=== PATIENT | male | born 2000 | race Caucasian/White ===

== ENCOUNTER 2021-10-12 11:01 | Inpatient (IN) | payer OTHER ==
[~2021-10-12] VITALS: Ht 172.7 cm; Wt 54.4 kg
[2021-10-12 11:13] VITALS: BP 131/93
[2021-10-12] MEDS ORDERED: BRINTELLIX10 MG PO (11:15)
[2021-10-12] MEDS ORDERED: BUSPIRONE HCL10 MG PO (11:15)
[2021-10-12] MEDS ORDERED: ADDERALL 10 MG10 MG PO (11:15)
[2021-10-12 11:40] LABS: HEMATOCRIT 43.4 % (42.0-52.0); HEMOGLOBIN 15.3 gm/dL (14.0-18.0); MCH 30.4 pg (26.0-34.0); MCHC 35.1 g/dL (28.0-37.0); MCV 86.6 fL (80.0-100.0); MPV 7.1 fl. (7.2-11.1); NUCLEATED RBCS 0 /100WBC; PLATELET COUNT* 350 thou/uL (150-400); RBC 5.02 mil/uL (4.50-6.00); RDW-CV 13.3 % (10.5-14.5)
[2021-10-12 12:08] LABS: CALCIUM 9.9 mg/dL (8.5-10.1); CREATININE 0.8 mg/dL (0.6-1.3); POTASSIUM 3.6 mmol/L (3.5-5.1)
[2021-10-12 12:11] LABS: ABSOLUTE LYMPHOCYTES 0.9 thou/uL (0.8-5.3); ABSOLUTE MONOCYTES 0.8 thou/uL (0.0-1.2); ABSOLUTE NEUTROPHILS 8.3 thou/uL (1.6-8.1); PLATELET ESTIMATE ADEQUATE
[2021-10-12 12:13] LABS: ALBUMIN 4.9 g/dL (3.4-5.0); TOTAL BILIRUBIN 0.9 mg/dL (<0.1-1.0); TOTAL PROTEIN 8.3 g/dL (6.4-8.2)
[2021-10-12 23:05] VITALS: BP 105/61
[2021-10-12 23:55] VITALS: BP 102/56
[2021-10-13 04:00] VITALS: BP 111/63
[2021-10-13 04:14] LABS: HEMATOCRIT 34.8 % (42.0-52.0); MCH 30.6 pg (26.0-34.0); MCHC 35.2 g/dL (28.0-37.0); MCV 87.1 fL (80.0-100.0); MPV 7.3 fl. (7.2-11.1); RDW-CV 13.3 % (10.5-14.5); WBC 6.1 thou/uL (4.0-11.0)
[2021-10-13 04:23] LABS: HEMOGLOBIN 12.2 gm/dL (14.0-18.0)
[2021-10-13 04:28] LABS: CALCIUM 8.4 mg/dL (8.5-10.1); CREATININE 0.8 mg/dL (0.6-1.3); POTASSIUM 3.6 mmol/L (3.5-5.1)
[2021-10-13 08:00] VITALS: BP 123/73
[2021-10-13 16:18] VITALS: BP 106/64
[2021-10-13 20:49] VITALS: BP 102/53
[2021-10-13 23:55] VITALS: BP 107/53
[2021-10-14 03:59] LABS: HEMATOCRIT 35.3 % (42.0-52.0); HEMOGLOBIN 12.2 gm/dL (14.0-18.0); MCH 30.4 pg (26.0-34.0); MCHC 34.5 g/dL (28.0-37.0); MCV 88.2 fL (80.0-100.0); MPV 7.2 fl. (7.2-11.1); RDW-CV 13.1 % (10.5-14.5); WBC 6.7 thou/uL (4.0-11.0)
[2021-10-14 04:14] LABS: CALCIUM 8.5 mg/dL (8.5-10.1); CREATININE 0.7 mg/dL (0.6-1.3); POTASSIUM 3.5 mmol/L (3.5-5.1)
[2021-10-14 08:00] VITALS: BP 110/64
[2021-10-14 14:27] VITALS: BP 110/64
== END 2021-10-14 14:40 | disposition home or self-care (01) | DRG 390 ==
LOC: M.ERS 11:01 → M.ORTHSURG 14:13 → M.TBA-ER 14:13 → M.ORTHSURG 23:39
PROVIDERS: Family Medicine; Surgery; ADMIT Student in an Organized Health Care Education/Training Program; ATTEND Student in an Organized Health Care Education/Training Program
PROC: 0DH673Z Insertion of Infusion Device into Stomach, Via Natural or Artificial Opening (ICD-10-PCS; principal; 2021-10-12)
DX: K56.600 Partial intestinal obstruction, unspecified as to cause (principal); Z20.822 Contact with and (suspected) exposure to COVID-19; Z79.899 Other long term (current) drug therapy